=== PATIENT | female | born 2000 | race Caucasian/White ===

== ENCOUNTER 2022-01-06 19:56 | Emergency (ER) | payer MEDICAID ==
[~2022-01-06] VITALS: Ht 162.6 cm; Wt 65.5 kg
[2022-01-06] MEDS ORDERED: IBUPROFEN 600 MG TABLET PO ONE (20:15)
[2022-01-06 22:00] VITALS: BP 115/81
== END 2022-01-06 22:02 | disposition home or self-care (01) ==
LOC: EMS 20:03
DX: S82.62XA Displaced fracture of lateral malleolus of left fibula, initial encounter for closed fracture (principal); X58.XXXA Exposure to other specified factors, initial encounter; Y93.67 Activity, basketball; Y92.89 Other specified places as the place of occurrence of the external cause; Y99.8 Other external cause status
CPT/HCPCS: 29515; 99284